=== PATIENT | female | born 1940 | race African-American/Black ===

== ENCOUNTER 2018-10-08 08:55 | Inpatient (IN) | payer MEDICARE, MEDICAID ==
[~2018-10-08] VITALS: Ht 167.6 cm; Wt 111.1 kg
[2018-10-08] MEDS: METHYLPREDNISOLONE SOD SUCC 40 MG/ML VIAL IV SCH (05:00)
[2018-10-08] MEDS ORDERED: SODIUM CHLORIDE 0.9% 1000ML BAG (SEPSIS BOLUS) IV ONE (09:30)
[2018-10-08] MEDS ORDERED: ALBUTEROL (0.083%) 2.5MG/3ML NEB HHN ONE ×2 (09:45→11:45)
[2018-10-08 10:07] LABS: CHLORIDE 102 mEq/L (98-107)
[2018-10-08 10:10] LABS: PROTHROMBIN TIME 10.3 sec (9.1-11.1)
[2018-10-08 10:24] LABS: HEMATOCRIT. 39.4 % (36.0-48.0); MEAN CORPUSCULAR HEMOGLOBIN 26.2 pg (28.0-32.0); MEAN CORPUSCULAR VOLUME 79.2 fL (81.0-99.0); PLATELET 197 x1000/uL (130-400); RED BLOOD CELL COUNT 4.98 mill/uL (4.2-5.4); RED CELL DISTRIBUTION WIDTH 15.8 % (11.6-14.6)
[2018-10-08 11:16] LABS: CLARITY URINE CLEAR (CLEAR); COLOR URINE YELLOW (YELLOW); KETONES URINE TRACE (NEGATIVE); LEUKOCYTE ESTERASE URINE TRACE (NEGATIVE); NITRITE URINE NEGATIVE (NEGATIVE); OCCULT BLOOD URINE TRACE (NEGATIVE); PROTEIN URINE 1+ (NEGATIVE); SPECIFIC GRAVITY URINE 1.013 (1.005-1.030); UROBILINOGEN URINE 0.2 E.U./dL (0.2-1.0)
[2018-10-08] MEDS ORDERED: METHYLPREDNISOLONE SOD SUCC 125 MG/2 ML VIAL IV ONE (11:45)
[2018-10-08] MEDS ORDERED: NITROFURANTOIN 100MG M/M CAPSULE PO ONE (12:15)
[2018-10-08 12:55] LABS: PLATELET ESTIMATE NORMAL
[2018-10-08] MEDS ORDERED: AMLODIPINE 10MG TABLET PO NR (14:00)
[2018-10-08] MEDS ORDERED: CLONIDINE 0.2MG TABLET PO PRN (21:00)
[2018-10-08] MEDS ORDERED: IPRATROPIUM/ALBUTEROL 0.5-3(2.5)MG/3ML NEB HHN PRN (21:00)
[2018-10-09 08:00] VITALS: BP 129/76
[2018-10-09] MEDS ORDERED: FLUT1DIS6 INH (10:37)
[2018-10-09] MEDS ORDERED: FEBU40TA MT (10:37)
[2018-10-09] MEDS ORDERED: IBUP-2030 MT (10:37)
[2018-10-09] MEDS ORDERED: ALBU2.5V13 NEB (10:37)
[2018-10-09] MEDS ORDERED: ATOR20TA65 MT (10:37)
[2018-10-09] MEDS ORDERED: GABA-529 MT (10:37)
[2018-10-09] MEDS ORDERED: FURO80TA3 MT (10:37)
[2018-10-09] MEDS ORDERED: OMEP20CA10 MT (10:37)
[2018-10-09] MEDS ORDERED: CHOL20004 MT (10:37)
[2018-10-09] MEDS ORDERED: IPRA4AER INH (10:37)
[2018-10-09] MEDS ORDERED: PRED5DRO EACHEYE (10:37)
[2018-10-09] MEDS ORDERED: AMLO10TA80 MT (10:37)
[2018-10-09] MEDS: LEVOFLOXACIN 500MG PREMIX 100 ML IV SCH (11:30)
[2018-10-09] MEDS: ENOXAPARIN 40MG/0.4ML SYR SUBCUT SCH (11:36)
[2018-10-09 12:00] VITALS: BP 124/49
[2018-10-09] MEDS: METHYLPREDNISOLONE SOD SUCC 40 MG/ML VIAL IV SCH ×2 (13:05→20:31)
[2018-10-09] MEDS ORDERED: PROMETHAZINE/DEXTROMETHORPHAN 6.25-15MG/5ML BOTTLE 120ML PO PRN (14:00)
[2018-10-09 16:00] VITALS: BP 119/64
[2018-10-09 17:19] VITALS: BP 119/64
[2018-10-09 17:31] VITALS: BP 129/76
[2018-10-09] MEDS ORDERED: HYDROCODONE/ACETAMINOPHEN 5/325MG TABLET PO PRN (19:00)
[2018-10-09 20:00] VITALS: BP 111/57
[2018-10-09] MEDS: FUROSEMIDE 40MG TABLET PO SCH (20:31)
[2018-10-09] MEDS ORDERED: ATORVASTATIN CALCIUM 20MG TABLET PO SCH (21:00)
[2018-10-10] VITALS: BP 121/64
[2018-10-10 04:00] VITALS: BP 117/55
[2018-10-10] MEDS: METHYLPREDNISOLONE SOD SUCC 40 MG/ML VIAL IV SCH ×3 (06:31→14:03)
[2018-10-10 08:00] VITALS: BP 151/75
[2018-10-10] MEDS ORDERED: AMLODIPINE 10MG TABLET PO SCH (09:00)
[2018-10-10] MEDS: ENOXAPARIN 40MG/0.4ML SYR SUBCUT SCH (09:44)
[2018-10-10] MEDS: FUROSEMIDE 40MG TABLET PO SCH (09:44)
[2018-10-10 12:00] VITALS: BP 122/64
[2018-10-10] MEDS: LEVOFLOXACIN 500MG PREMIX 100 ML IV SCH ×2 (14:04→15:38)
[2018-10-10 16:00] VITALS: BP 108/68
[2018-10-10 16:36] VITALS: BP 128/78
[2018-10-11 08:00] VITALS: BP 141/63
== END 2018-10-10 18:27 | disposition home or self-care (01) | DRG 189 ==
LOC: ER 09:03 → 7WST 11:43 → EDBEDREQ 11:43 → EDBEDREQSVC 11:43 → EDBEDREQTM 11:43 → EDBEDREQ 12:12 → SUPCPDRO 15:16 → ENRESERV 10-09 07:17
PROVIDERS: ADMIT Internal Medicine; ATTEND Internal Medicine
DX: J96.01 Acute respiratory failure with hypoxia (principal); J44.1 Chronic obstructive pulmonary disease with (acute) exacerbation; E66.01 Morbid (severe) obesity due to excess calories; I16.0 Hypertensive urgency; I11.9 Hypertensive heart disease without heart failure; I49.1 Atrial premature depolarization; M10.9 Gout, unspecified; Z68.39 Body mass index [BMI] 39.0-39.9, adult; I51.7 Cardiomegaly
CPT/HCPCS: 36415; 71045; 82962; 83605; 84484; 93005; 94640; 96361; 96374; 97162; 99285; J1650; J1956; J2920; J2930; J7030; J7050; J7611; J7620

== ENCOUNTER 2019-08-06 10:35 | Inpatient (IN) | payer MEDICARE, MEDICAID ==
[~2019-08-06] VITALS: Ht 171.4 cm; Wt 111.6 kg
[~2019-08-06 10:35] MED LIST: ALBU2.5V13 NEB; AMLO10TA80 MT; ATOR20TA65 MT; CHOL20004 MT; FEBU40TA MT; FLUT1DIS6 INH; FURO80TA3 MT; GABA-529 MT; IBUP-2030 MT; IPRA4AER INH; OMEP20CA14 MT; PRED5DRO EACHEYE
[2019-08-06] MEDS ORDERED: IPRATROPIUM BROMIDE (0.02%) 0.5MG/2.5ML NEB HHN STA (11:55)
[2019-08-06] MEDS ORDERED: METHYLPREDNISOLONE SOD SUCC 125 MG/2 ML VIAL IV STA (11:55)
[2019-08-06] MEDS ORDERED: ALBUTEROL (0.083%) 2.5MG/3ML NEB HHN STA (11:55)
[2019-08-06 13:09] LABS: EOSINOPHILS % 4.4 % (0.0-5.0); HEMATOCRIT. 34.4 % (36.0-48.0); HEMOGLOBIN. 11.3 g/dL (12.0-16.0); LYMPHOCYTES % 26.6 % (20.0-50.0); MEAN CORPUSCULAR HEMOGLOBIN 26.7 pg (28.0-32.0); MEAN CORPUSCULAR VOLUME 81.6 fL (81.0-99.0); MEAN PLATELET VOLUME 10.1 fl (7.4-10.4); MONOCYTES % 9.2 % (2.0-8.0); NEUTROPHILS % 58.8 % (40.0-76.0); PLATELET 174 x1000/uL (130-400); RED BLOOD CELL COUNT 4.21 mill/uL (4.2-5.4); RED CELL DISTRIBUTION WIDTH 15.2 % (11.6-14.6)
[2019-08-06 13:17] LABS: CHLORIDE 108 mEq/L (98-107)
[2019-08-06] MEDS ORDERED: FLUT1BLS IH (22:19)
[2019-08-06] MEDS ORDERED: CYCL30DR EACHEYE (22:19)
[2019-08-06 22:20] VITALS: BP 123/73
[2019-08-07] VITALS: BP 129/75
[2019-08-07] MEDS ORDERED: HYDROCODONE/ACETAMINOPHEN 5/325MG TABLET PO PRN (00:15)
[2019-08-07] MEDS ORDERED: ONDANSETRON HCL 4MG/2ML INJ IV PRN (00:15)
[2019-08-07] MEDS ORDERED: DILTIAZEM HCL 5MG/ML 25ML VIAL IV NR (01:00)
[2019-08-07] MEDS: ENOXAPARIN 120MG/0.8ML SYR SUBCUT SCH ×2 (01:44→13:51)
[2019-08-07] MEDS: METHYLPREDNISOLONE SOD SUCC 40 MG/ML VIAL IV SCH ×3 (01:44→18:34)
[2019-08-07 04:00] VITALS: BP 147/81
[2019-08-07] MEDS: OMEPRAZOLE 20MG CAPSULE EXTENDED RELEASE PO SCH (05:57)
[2019-08-07 07:56] LABS: BASOPHILS % 0.5 % (0.0-2.0); HEMATOCRIT. 37.3 % (36.0-48.0); HEMOGLOBIN. 12.1 g/dL (12.0-16.0); LYMPHOCYTES % 13.7 % (20.0-50.0); MEAN CORPUSCULAR HEMOGLOBIN 26.8 pg (28.0-32.0); MEAN CORPUSCULAR VOLUME 82.4 fL (81.0-99.0); MEAN PLATELET VOLUME 10.6 fl (7.4-10.4); MONOCYTES % 1.6 % (2.0-8.0); NEUTROPHILS % 84.2 % (40.0-76.0); PLATELET 188 x1000/uL (130-400); RED BLOOD CELL COUNT 4.52 mill/uL (4.2-5.4); RED CELL DISTRIBUTION WIDTH 15.5 % (11.6-14.6)
[2019-08-07 08:41] LABS: CHLORIDE 110 mEq/L (98-107)
[2019-08-07 08:50] LABS: CREATINE KINASE 89 IU/L (26-192)
[2019-08-07 08:51] LABS: CREATINE KINASE MB FRACTION 2.8 ng/mL (0.5-3.6)
[2019-08-07] MEDS: IPRATROPIUM BROMIDE (0.02%) 0.5MG/2.5ML NEB HHN SCH ×4 (08:51→20:55)
[2019-08-07] MEDS ORDERED: OSELTAMIVIR 75MG CAPSULE PO SCH (09:00)
[2019-08-07] MEDS ORDERED: AMLODIPINE 10MG TABLET PO SCH (09:00)
[2019-08-07] MEDS ORDERED: FUROSEMIDE 40MG TABLET PO SCH (09:00)
[2019-08-07] MEDS: GABAPENTIN 100MG CAPSULE PO SCH (09:07)
[2019-08-07] MEDS ORDERED: DILTIAZEM HCL 5MG/ML 5ML VIAL IV PRN (11:15)
[2019-08-07] MEDS: FUROSEMIDE 40MG TABLET PO SCH (11:30)
[2019-08-07 12:00] VITALS: BP 120/72
[2019-08-07] MEDS: DILTIAZEM HCL 60MG TABLET PO SCH ×2 (13:51→22:25)
[2019-08-07 16:00] VITALS: BP 127/69
[2019-08-07 20:00] VITALS: BP 127/70
[2019-08-07] MEDS: GUAIFENESIN/CODEINE 100-10MG/5ML UDC PO PRN (22:24)
[2019-08-07] MEDS: ATORVASTATIN CALCIUM 20MG TABLET PO SCH (22:25)
[2019-08-08] VITALS: BP 122/69
[2019-08-08] MEDS: METHYLPREDNISOLONE SOD SUCC 40 MG/ML VIAL IV SCH ×3 (01:16→17:52)
[2019-08-08] MEDS: ENOXAPARIN 120MG/0.8ML SYR SUBCUT SCH ×2 (01:17→11:55)
[2019-08-08] MEDS: IPRATROPIUM BROMIDE (0.02%) 0.5MG/2.5ML NEB HHN SCH ×6 (01:35→20:14)
[2019-08-08 04:00] VITALS: BP 140/80
[2019-08-08] MEDS: DILTIAZEM HCL 60MG TABLET PO SCH ×3 (06:10→21:21)
[2019-08-08] MEDS: OMEPRAZOLE 20MG CAPSULE EXTENDED RELEASE PO SCH (06:10)
[2019-08-08 07:20] LABS: BASOPHILS % 0.3 % (0.0-2.0); HEMATOCRIT. 34.8 % (36.0-48.0); HEMOGLOBIN. 11.5 g/dL (12.0-16.0); LYMPHOCYTES % 10.2 % (20.0-50.0); MEAN CORPUSCULAR VOLUME 81.7 fL (81.0-99.0); MEAN PLATELET VOLUME 10.7 fl (7.4-10.4); MONOCYTES % 3.9 % (2.0-8.0); NEUTROPHILS % 85.6 % (40.0-76.0); PLATELET 202 x1000/uL (130-400); RED BLOOD CELL COUNT 4.25 mill/uL (4.2-5.4); RED CELL DISTRIBUTION WIDTH 15.1 % (11.6-14.6)
[2019-08-08 08:22] VITALS: BP 124/76
[2019-08-08] MEDS: GABAPENTIN 100MG CAPSULE PO SCH (09:47)
[2019-08-08] MEDS: FUROSEMIDE 40MG TABLET PO SCH (09:47)
[2019-08-08] MEDS: GUAIFENESIN/CODEINE 100-10MG/5ML UDC PO PRN ×2 (10:02→21:31)
[2019-08-08 12:00] VITALS: BP 129/72
[2019-08-08 16:00] VITALS: BP 126/60
[2019-08-08 17:59] LABS: PROTHROMBIN TIME 10.5 sec (9.6-11.0)
[2019-08-08 20:00] VITALS: BP 125/72
[2019-08-08] MEDS: ATORVASTATIN CALCIUM 20MG TABLET PO SCH (21:21)
[2019-08-09] VITALS: BP 141/69
[2019-08-09] MEDS: IPRATROPIUM BROMIDE (0.02%) 0.5MG/2.5ML NEB HHN SCH ×6 (00:14→20:05)
[2019-08-09] MEDS: METHYLPREDNISOLONE SOD SUCC 40 MG/ML VIAL IV SCH ×3 (00:53→16:56)
[2019-08-09] MEDS: ENOXAPARIN 120MG/0.8ML SYR SUBCUT SCH ×2 (00:54→12:47)
[2019-08-09 04:00] VITALS: BP 141/78
[2019-08-09] MEDS: DILTIAZEM HCL 60MG TABLET PO SCH ×2 (05:48→12:47)
[2019-08-09 06:55] LABS: BASOPHILS % 0.3 % (0.0-2.0); HEMATOCRIT. 36.5 % (36.0-48.0); HEMOGLOBIN. 11.9 g/dL (12.0-16.0); LYMPHOCYTES % 8.3 % (20.0-50.0); MEAN CORPUSCULAR HEMOGLOBIN 26.6 pg (28.0-32.0); MEAN CORPUSCULAR VOLUME 81.8 fL (81.0-99.0); MEAN PLATELET VOLUME 10.5 fl (7.4-10.4); MONOCYTES % 3.7 % (2.0-8.0); NEUTROPHILS % 87.7 % (40.0-76.0); PLATELET 218 x1000/uL (130-400); RED BLOOD CELL COUNT 4.47 mill/uL (4.2-5.4); RED CELL DISTRIBUTION WIDTH 15.2 % (11.6-14.6)
[2019-08-09 08:00] VITALS: BP 130/77
[2019-08-09] MEDS: GABAPENTIN 100MG CAPSULE PO SCH (09:34)
[2019-08-09] MEDS: FAMOTIDINE 40MG TABLET PO SCH ×2 (09:34→20:44)
[2019-08-09 12:00] VITALS: BP 131/73
[2019-08-09] MEDS: GUAIFENESIN/CODEINE 100-10MG/5ML UDC PO PRN (12:47)
[2019-08-09] MEDS: DILTIAZEM HCL 90MG TABLET PO SCH ×2 (14:00→20:44)
[2019-08-09 16:00] VITALS: BP 138/75
[2019-08-09 20:00] VITALS: BP 143/80
[2019-08-09] MEDS: ATORVASTATIN CALCIUM 20MG TABLET PO SCH (20:44)
[2019-08-10] VITALS: BP 150/87
[2019-08-10] MEDS: ALBUTEROL (0.083%) 2.5MG/3ML NEB HHN SCH ×3 (01:23→20:40)
[2019-08-10] MEDS: ENOXAPARIN 120MG/0.8ML SYR SUBCUT SCH ×2 (03:02→14:27)
[2019-08-10] MEDS: METHYLPREDNISOLONE SOD SUCC 40 MG/ML VIAL IV SCH ×3 (03:02→17:57)
[2019-08-10 04:00] VITALS: BP 139/78
[2019-08-10] MEDS: DILTIAZEM HCL 90MG TABLET PO SCH ×2 (06:17→18:09)
[2019-08-10 07:41] LABS: HEMATOCRIT. 36.6 % (36.0-48.0); HEMOGLOBIN. 12.1 g/dL (12.0-16.0); MEAN CORPUSCULAR HEMOGLOBIN 27.4 pg (28.0-32.0); MEAN CORPUSCULAR VOLUME 82.6 fL (81.0-99.0); MEAN PLATELET VOLUME 10.1 fl (7.4-10.4); PLATELET 201 x1000/uL (130-400); RED BLOOD CELL COUNT 4.43 mill/uL (4.2-5.4); RED CELL DISTRIBUTION WIDTH 15.4 % (11.6-14.6)
[2019-08-10 08:00] VITALS: BP 130/78
[2019-08-10] MEDS ORDERED: FLUTICASONE/VILANTEROL 200-25 BLST.W.DEV ORI SCH (09:00)
[2019-08-10] MEDS: BUDESONIDE 0.5MG/2ML NEB HHN SCH ×2 (09:00→20:40)
[2019-08-10] MEDS: GABAPENTIN 100MG CAPSULE PO SCH (09:38)
[2019-08-10] MEDS: FAMOTIDINE 40MG TABLET PO SCH ×2 (09:38→21:03)
[2019-08-10 10:01] LABS: CHLORIDE 108 mEq/L (98-107)
[2019-08-10 11:15] LABS: PLATELET ESTIMATE NORMAL
[2019-08-10] MEDS ORDERED: SODIUM BICARBONATE 4% (2.4MEQ) 5ML VIAL IV ONE (12:33)
[2019-08-10] MEDS ORDERED: LIDOCAINE HCL 1% 20ML VIAL (Pyxis) INJ ONE (12:33)
[2019-08-10] MEDS ORDERED: IOHEXOL-350 100 ML BOTTLE ONE (14:12)
[2019-08-10 16:00] VITALS: BP 158/79
[2019-08-10 20:00] VITALS: BP 127/75
[2019-08-10] MEDS: ATORVASTATIN CALCIUM 20MG TABLET PO SCH (21:03)
[2019-08-11] VITALS (9 sets, daily range): BP systolic 109–150; BP diastolic 50–84
[2019-08-11] MEDS: DILTIAZEM HCL 90MG TABLET PO SCH ×4 (01:06→17:51)
[2019-08-11] MEDS: METHYLPREDNISOLONE SOD SUCC 40 MG/ML VIAL IV SCH ×3 (01:08→17:51)
[2019-08-11] MEDS ORDERED: ENOXAPARIN 120MG/0.8ML SYR SUBCUT SCH (02:00)
[2019-08-11] MEDS: ALBUTEROL (0.083%) 2.5MG/3ML NEB HHN SCH ×4 (04:31→22:50)
[2019-08-11] MEDS: BUDESONIDE 0.5MG/2ML NEB HHN SCH ×2 (08:45→22:50)
[2019-08-11 08:54] LABS: HEMATOCRIT. 37.1 % (36.0-48.0); HEMOGLOBIN. 12.3 g/dL (12.0-16.0); MEAN CORPUSCULAR HEMOGLOBIN 27.4 pg (28.0-32.0); MEAN CORPUSCULAR VOLUME 82.8 fL (81.0-99.0); PLATELET 193 x1000/uL (130-400); RED BLOOD CELL COUNT 4.48 mill/uL (4.2-5.4); RED CELL DISTRIBUTION WIDTH 15.4 % (11.6-14.6)
[2019-08-11] MEDS ORDERED: MIDAZOLAM HCL 2 MG/2 ML VIAL ONE (08:55)
[2019-08-11] MEDS ORDERED: FENTANYL CITRATE/PF 50MCG/ML 2ML VIAL ONE (08:55)
[2019-08-11] MEDS ORDERED: SODIUM CHLORIDE 0.9% 10ML VIAL ONE ×3 (09:00→09:54)
[2019-08-11] MEDS: FAMOTIDINE 40MG TABLET PO SCH ×2 (09:00→21:54)
[2019-08-11] MEDS: GABAPENTIN 100MG CAPSULE PO SCH (09:00)
[2019-08-11] MEDS ORDERED: EPHEDRINE SULFATE 50MG/ML VIAL ONE (09:00)
[2019-08-11] MEDS ORDERED: LIDOCAINE HCL 1% 20ML VIAL (Pyxis) INJ ONE (09:25)
[2019-08-11] MEDS ORDERED: CEFAZOLIN SODIUM 1000MG/VIAL ONE (09:53)
[2019-08-11] MEDS ORDERED: HYDROCORTISONE SOD SUCCINATE 100 MG/2 ML VIAL ONE (09:57)
[2019-08-11] MEDS ORDERED: METOCLOPRAMIDE HCL 10MG/2ML VIAL ONE (09:59)
[2019-08-11] MEDS ORDERED: ONDANSETRON HCL 4MG/2ML INJ ONE (11:31)
[2019-08-11] MEDS ORDERED: GLYCOPYRROLATE 0.2 MG/ML 2ML VIAL ONE ×2 (11:35→11:47)
[2019-08-11] MEDS ORDERED: ATROPINE SULFATE 1MG/10ML SYR IV PRN (12:00)
[2019-08-11 13:15] LABS: PLATELET ESTIMATE NORMAL
[2019-08-11] MEDS ORDERED: HEPARIN SODIUM 1,000 UNIT/1ML VIAL IV ONE (17:06)
[2019-08-11] MEDS: ATORVASTATIN CALCIUM 20MG TABLET PO SCH (21:54)
[2019-08-12] VITALS (9 sets, daily range): BP systolic 101–131; BP diastolic 50–69
[2019-08-12] MEDS: METHYLPREDNISOLONE SOD SUCC 40 MG/ML VIAL IV SCH ×2 (01:07→10:28)
[2019-08-12] MEDS: ALBUTEROL (0.083%) 2.5MG/3ML NEB HHN SCH ×3 (03:56→13:45)
[2019-08-12 07:53] LABS: HEMOGLOBIN. 11.3 g/dL (12.0-16.0); MEAN CORPUSCULAR HEMOGLOBIN 26.7 pg (28.0-32.0); MEAN CORPUSCULAR VOLUME 82.7 fL (81.0-99.0); MEAN PLATELET VOLUME 9.9 fl (7.4-10.4); PLATELET 161 x1000/uL (130-400); RED BLOOD CELL COUNT 4.23 mill/uL (4.2-5.4); RED CELL DISTRIBUTION WIDTH 15.5 % (11.6-14.6)
[2019-08-12] MEDS: BUDESONIDE 0.5MG/2ML NEB HHN SCH (07:58)
[2019-08-12] MEDS: FAMOTIDINE 40MG TABLET PO SCH (08:22)
[2019-08-12] MEDS: GABAPENTIN 100MG CAPSULE PO SCH (08:22)
[2019-08-12 14:27] LABS: PLATELET ESTIMATE NORMAL
== END 2019-08-12 16:30 | disposition home or self-care (01) | DRG 273 ==
LOC: ER 10:42 → 5WST 15:50 → EDBEDREQTM 16:01 → EDBEDREQ 16:01 → ENRESERV 20:20 → 3WST 08-11 10:40
PROVIDERS: ADMIT Internal Medicine; ATTEND Internal Medicine
PROC: 02HV33Z Insertion of Infusion Device into Superior Vena Cava, Percutaneous Approach (ICD-10-PCS; principal; 2019-08-10)
PROC: B548ZZA Ultrasonography of Superior Vena Cava, Guidance (ICD-10-PCS; 2019-08-10)
PROC: B5181ZA Fluoroscopy of Superior Vena Cava using Low Osmolar Contrast, Guidance (ICD-10-PCS; 2019-08-10)
PROC: 02583ZZ Destruction of Conduction Mechanism, Percutaneous Approach (ICD-10-PCS; 2019-08-11)
PROC: 4A023FZ Measurement of Cardiac Rhythm, Percutaneous Approach (ICD-10-PCS; 2019-08-11)
PROC: 4A0234Z Measurement of Cardiac Electrical Activity, Percutaneous Approach (ICD-10-PCS; 2019-08-11)
PROC: 02K83ZZ Map Conduction Mechanism, Percutaneous Approach (ICD-10-PCS; 2019-08-11)
DX: I48.3 Typical atrial flutter (principal); J96.20 Acute and chronic respiratory failure, unspecified whether with hypoxia or hypercapnia; I50.23 Acute on chronic systolic (congestive) heart failure; J44.1 Chronic obstructive pulmonary disease with (acute) exacerbation; J11.1 Influenza due to unidentified influenza virus with other respiratory manifestations; I42.9 Cardiomyopathy, unspecified; E78.5 Hyperlipidemia, unspecified; G47.33 Obstructive sleep apnea (adult) (pediatric); I11.0 Hypertensive heart disease with heart failure; D64.9 Anemia, unspecified; E66.01 Morbid (severe) obesity due to excess calories; K21.9 Gastro-esophageal reflux disease without esophagitis; I45.9 Conduction disorder, unspecified; R26.9 Unspecified abnormalities of gait and mobility; M10.9 Gout, unspecified; R73.9 Hyperglycemia, unspecified; Z90.710 Acquired absence of both cervix and uterus; Z99.81 Dependence on supplemental oxygen; Z79.899 Other long term (current) drug therapy; Z68.38 Body mass index [BMI] 38.0-38.9, adult; Z88.8 Allergy status to other drugs, medicaments and biological substances; Z79.01 Long term (current) use of anticoagulants; Z82.49 Family history of ischemic heart disease and other diseases of the circulatory system; Z87.891 Personal history of nicotine dependence; Z98.49 Cataract extraction status, unspecified eye
CPT/HCPCS: 36415; 36573; 71045; 75572; 76937; 80048; 80053; 82550; 82553; 83735; 83880; 84443; 84484; 85025; 85379; 87804; 93005; 93306; 93613; 93621; 93653; 93662; 93970; 94640; 97116; 97162; 97166; 97530; 99285; C1725; C1731; C1732; C1759; C1893; J0690; J1644; J1650; J1720; J2250; J2405; J2765; J2920; J2930; J3010; J3490; J7040; J7626; Q9967

== ENCOUNTER 2020-03-28 12:19 | Inpatient (IN) | payer MEDICARE, MEDICAID ==
[~2020-03-28] VITALS: Ht 170.2 cm; Wt 104.5 kg
[~2020-03-28 12:19] MED LIST changes: +CYCL30DR EACHEYE; +FLUT1BLS IH
[2020-03-28] MEDS ORDERED: FAMOTIDINE 20MG/2ML VIAL IV STA (12:49)
[2020-03-28] MEDS ORDERED: PANTOPRAZOLE SODIUM 40 MG/VIAL IV STA (12:49)
[2020-03-28 13:11] LABS: BASOPHILS % 1.3 % (0.0-2.0); EOSINOPHILS % 3.6 % (0.0-5.0); HEMATOCRIT. 33.1 % (36.0-48.0); HEMOGLOBIN. 10.6 g/dL (12.0-16.0); LYMPHOCYTES % 19.9 % (20.0-50.0); MEAN CORPUSCULAR HEMOGLOBIN 26.6 pg (28.0-32.0); MEAN CORPUSCULAR VOLUME 82.9 fL (81.0-99.0); MEAN PLATELET VOLUME 10.4 fl (7.4-10.4); MONOCYTES % 8.6 % (2.0-8.0); NEUTROPHILS % 66.6 % (40.0-76.0); PLATELET 207 x1000/uL (130-400); RED BLOOD CELL COUNT 3.99 mill/uL (4.2-5.4); RED CELL DISTRIBUTION WIDTH 14.5 % (11.6-14.6)
[2020-03-28 13:21] LABS: CHLORIDE 111 mEq/L (98-107)
[2020-03-28 13:28] LABS: INR 1.1; PROTHROMBIN TIME 11.2 sec (9.6-11.0)
[2020-03-28 22:01] LABS: CLARITY URINE CLEAR (CLEAR); COLOR URINE OTHER (YELLOW); KETONES URINE NEGATIVE (NEGATIVE); LEUKOCYTE ESTERASE URINE NEGATIVE (NEGATIVE); NITRITE URINE NEGATIVE (NEGATIVE); OCCULT BLOOD URINE NEGATIVE (NEGATIVE); PH URINE 6.5 (4.5-8.0); PROTEIN URINE NEGATIVE (NEGATIVE); SPECIFIC GRAVITY URINE 1.012 (1.005-1.030); UROBILINOGEN URINE 0.2 E.U./dL (0.2-1.0)
[2020-03-29] VITALS (14 sets, daily range): BP systolic 133–188; BP diastolic 67–107
[2020-03-29] MEDS ORDERED: HYDROCODONE/ACETAMINOPHEN 5/325MG TABLET PO PRN (01:30)
[2020-03-29] MEDS ORDERED: ONDANSETRON HCL 4MG/2ML INJ IV PRN (01:30)
[2020-03-29 06:22] LABS: BASOPHILS % 1.6 % (0.0-2.0); HEMATOCRIT. 33.1 % (36.0-48.0); HEMOGLOBIN. 10.8 g/dL (12.0-16.0); MEAN CORPUSCULAR HEMOGLOBIN 27.1 pg (28.0-32.0); MEAN PLATELET VOLUME 10.9 fl (7.4-10.4); MONOCYTES % 11.7 % (2.0-8.0); NEUTROPHILS % 61.7 % (40.0-76.0); PLATELET 178 x1000/uL (130-400); RED BLOOD CELL COUNT 3.99 mill/uL (4.2-5.4); RED CELL DISTRIBUTION WIDTH 14.7 % (11.6-14.6)
[2020-03-29 06:30] LABS: CHLORIDE 112 mEq/L (98-107)
[2020-03-29] MEDS: AMLODIPINE 10MG TABLET PO SCH (09:36)
[2020-03-29] MEDS: ATORVASTATIN CALCIUM 20MG TABLET PO SCH (09:36)
[2020-03-29] MEDS: PANTOPRAZOLE SODIUM 40 MG/VIAL IV SCH (09:36)
[2020-03-29] MEDS: GABAPENTIN 100MG CAPSULE PO SCH ×3 (09:36→21:18)
[2020-03-29 11:38] LABS: BASOPHILS % 0.8 % (0.0-2.0); EOSINOPHILS % 3.7 % (0.0-5.0); HEMATOCRIT. 32.2 % (36.0-48.0); HEMOGLOBIN. 10.5 g/dL (12.0-16.0); LYMPHOCYTES % 17.7 % (20.0-50.0); MEAN CORPUSCULAR HEMOGLOBIN 26.9 pg (28.0-32.0); MEAN CORPUSCULAR VOLUME 82.4 fL (81.0-99.0); MEAN PLATELET VOLUME 10.3 fl (7.4-10.4); MONOCYTES % 9.9 % (2.0-8.0); NEUTROPHILS % 67.9 % (40.0-76.0); PLATELET 180 x1000/uL (130-400); RED BLOOD CELL COUNT 3.91 mill/uL (4.2-5.4); RED CELL DISTRIBUTION WIDTH 14.5 % (11.6-14.6)
[2020-03-29 11:54] LABS: CHLORIDE 111 mEq/L (98-107)
[2020-03-29 16:14] LABS: TOTAL IRON BINDING CAPACITY 237 ug/dL (250-450)
[2020-03-29] MEDS: FUROSEMIDE 40MG TABLET PO SCH ×2 (16:33→16:34)
[2020-03-29 16:49] LABS: FOLIC ACID (FOLATE) SERUM 12.3 ng/mL (>5.38)
[2020-03-29 18:46] LABS: HEMATOCRIT 34.5 % (36.0-48.0); HEMOGLOBIN 11.3 g/dL (12.0-16.0)
[2020-03-29 19:01] LABS: T4 FREE 1.36 ng/dL (0.76-1.46)
[2020-03-30] VITALS (12 sets, daily range): BP systolic 102–176; BP diastolic 52–75
[2020-03-30] MEDS: GABAPENTIN 100MG CAPSULE PO SCH ×2 (06:21→14:52)
[2020-03-30] MEDS: FUROSEMIDE 40MG TABLET PO SCH ×2 (06:21→17:15)
[2020-03-30 08:43] LABS: BASOPHILS % 1.3 % (0.0-2.0); EOSINOPHILS % 4.7 % (0.0-5.0); HEMATOCRIT. 35.6 % (36.0-48.0); HEMOGLOBIN. 11.5 g/dL (12.0-16.0); LYMPHOCYTES % 19.9 % (20.0-50.0); MEAN CORPUSCULAR HEMOGLOBIN 26.9 pg (28.0-32.0); MEAN CORPUSCULAR VOLUME 83.1 fL (81.0-99.0); MEAN PLATELET VOLUME 10.4 fl (7.4-10.4); MONOCYTES % 7.9 % (2.0-8.0); NEUTROPHILS % 66.2 % (40.0-76.0); PLATELET 214 x1000/uL (130-400); RED BLOOD CELL COUNT 4.28 mill/uL (4.2-5.4); RED CELL DISTRIBUTION WIDTH 14.8 % (11.6-14.6)
[2020-03-30] MEDS: ATORVASTATIN CALCIUM 20MG TABLET PO SCH (08:48)
[2020-03-30] MEDS: PANTOPRAZOLE SODIUM 40 MG/VIAL IV SCH (08:48)
[2020-03-30] MEDS: AMLODIPINE 10MG TABLET PO SCH (08:48)
[2020-03-30 09:01] LABS: CHLORIDE 108 mEq/L (98-107)
== END 2020-03-30 20:04 | disposition home or self-care (01) | DRG 378 ==
LOC: ER 12:37 → EDBEDREQ 13:57 → EDBEDREQTM 13:57 → MICUSO 15:13 → EDBEDREQ 15:22 → EDBEDREQTM 15:22 → 3WST 03-29 00:11
PROVIDERS: ADMIT Internal Medicine; ATTEND Internal Medicine
DX: K62.5 Hemorrhage of anus and rectum (principal); I42.9 Cardiomyopathy, unspecified; I48.92 Unspecified atrial flutter; D63.8 Anemia in other chronic diseases classified elsewhere; E66.9 Obesity, unspecified; E78.5 Hyperlipidemia, unspecified; F17.200 Nicotine dependence, unspecified, uncomplicated; G47.33 Obstructive sleep apnea (adult) (pediatric); G62.9 Polyneuropathy, unspecified; I11.0 Hypertensive heart disease with heart failure; I48.91 Unspecified atrial fibrillation; I49.3 Ventricular premature depolarization; I50.9 Heart failure, unspecified; J44.9 Chronic obstructive pulmonary disease, unspecified; K21.9 Gastro-esophageal reflux disease without esophagitis; K59.00 Constipation, unspecified; M10.9 Gout, unspecified; M16.0 Bilateral primary osteoarthritis of hip; M17.12 Unilateral primary osteoarthritis, left knee; Z90.710 Acquired absence of both cervix and uterus; Z88.8 Allergy status to other drugs, medicaments and biological substances; Z79.899 Other long term (current) drug therapy; Z68.36 Body mass index [BMI] 36.0-36.9, adult
CPT/HCPCS: 36415; 70551; 71045; 72141; 72148; 73522; 73560; 80048; 80053; 81003; 82550; 82607; 82728; 82746; 83036; 83540; 83550; 83735; 83880; 84439; 84443; 84481; 84484; 85014; 85018; 85025; 86850; 86900; 93005; 93970; 94660; 97162; 99285; C9113; J3490

== ENCOUNTER → 2020-09-11 | Outpatient (CLI) | payer MEDICARE, MEDICAID | END | disposition home or self-care (01) | LOC: MRI 10:04 | PROVIDERS: ATTEND Neurological Surgery | DX: M47.816 Spondylosis without myelopathy or radiculopathy, lumbar region (principal); M48.061 Spinal stenosis, lumbar region without neurogenic claudication; M51.46 Schmorl's nodes, lumbar region | CPT/HCPCS: 72148 ==

== ENCOUNTER 2020-11-12 11:01 | Inpatient (IN) | payer MEDICARE, MEDICAID ==
[~2020-11-12] VITALS: Ht 154.9 cm; Wt 97.5 kg
[2020-11-12 13:09] LABS: BASOPHILS % 1.3 % (0.0-2.0); EOSINOPHILS % 4.4 % (0.0-5.0); HEMATOCRIT. 33.8 % (36.0-48.0); HEMOGLOBIN. 10.9 g/dL (12.0-16.0); LYMPHOCYTES % 24.1 % (20.0-50.0); MEAN CORPUSCULAR HEMOGLOBIN 25.7 pg (28.0-32.0); MEAN CORPUSCULAR VOLUME 79.5 fL (81.0-99.0); MONOCYTES % 11.3 % (2.0-8.0); NEUTROPHILS % 58.9 % (40.0-76.0); PLATELET 188 x1000/uL (130-400); RED BLOOD CELL COUNT 4.25 mill/uL (4.2-5.4); RED CELL DISTRIBUTION WIDTH 16.3 % (11.6-14.6)
[2020-11-12 13:16] LABS: CHLORIDE 110 mEq/L (98-107)
[2020-11-12 13:20] LABS: ETHANOL BLOOD < 10 mg/dL
[2020-11-12] MEDS ORDERED: AMLODIPINE 5MG TABLET PO ONE (14:15)
[2020-11-12 15:23] LABS: CLARITY URINE CLEAR (CLEAR); COLOR URINE YELLOW (YELLOW); KETONES URINE NEGATIVE (NEGATIVE); LEUKOCYTE ESTERASE URINE 2+ (NEGATIVE); NITRITE URINE NEGATIVE (NEGATIVE); OCCULT BLOOD URINE NEGATIVE (NEGATIVE); PH URINE 6.5 (4.5-8.0); PROTEIN URINE TRACE (NEGATIVE); SPECIFIC GRAVITY URINE 1.012 (1.005-1.030); UROBILINOGEN URINE 0.2 E.U./dL (0.2-1.0)
[2020-11-12 15:34] LABS: *AMPHETAMINES SCREEN URINE NEGATIVE (NEGATIVE); *BARBITURATES SCREEN URINE NEGATIVE (NEGATIVE); *BENZODIAZEPINES SCREEN URINE NEGATIVE (NEGATIVE); *COCAINE SCREEN URINE NEGATIVE (NEGATIVE); METHADONE URINE SCREEN NEGATIVE (NEGATIVE); OPIATES URINE SCREEN NEGATIVE (NEGATIVE)
[2020-11-12 15:35] LABS: CANNABINOID URINE SCREEN NEGATIVE (NEGATIVE); PHENCYCLIDINE URINE SCREEN NEGATIVE (NEGATIVE)
[2020-11-12] MEDS ORDERED: CEFEPIME 2,000 MG in DEXT 5% WATER 100 ML IV SCH (16:45)
[2020-11-12] MEDS ORDERED: CEFEPIME 1,000 MG in DEXTROSE 5% WATER 50 ML IV SCH (17:00)
[2020-11-12] MEDS ORDERED: ONDANSETRON HCL 4MG/2ML INJ IV PRN (22:30)
[2020-11-12] MEDS ORDERED: ACETAMINOPHEN 325MG TABLET PO PRN (22:30)
[2020-11-12] MEDS ORDERED: MORPHINE SULFATE 2 MG/ML CPJ (NOT FOR IM USE) IV PRN (22:30)
[2020-11-12] MEDS ORDERED: CLONIDINE 0.1MG TABLET PO PRN (22:30)
[2020-11-12] MEDS ORDERED: HYDROCODONE/ACETAMINOPHEN 5/325MG TABLET PO PRN (22:30)
[2020-11-12] MEDS ORDERED: LIDOCAINE HCL 4% CREAM 76GM TUBE TP SCH (23:00)
[2020-11-13 00:09] VITALS: BP 149/72
[2020-11-13] MEDS: GABAPENTIN 100MG CAPSULE PO SCH ×4 (01:28→20:27)
[2020-11-13] MEDS: CEFEPIME 1,000 MG in DEXTROSE 5% WATER 50 ML IV SCH ×2 (05:47→20:27)
[2020-11-13] MEDS: OMEPRAZOLE 20MG CAPSULE EXTENDED RELEASE PO SCH (06:47)
[2020-11-13 07:04] LABS: BASOPHILS % 1.1 % (0.0-2.0); HEMATOCRIT. 35.6 % (36.0-48.0); HEMOGLOBIN. 11.7 g/dL (12.0-16.0); LYMPHOCYTES % 20.7 % (20.0-50.0); MEAN CORPUSCULAR HEMOGLOBIN 26.4 pg (28.0-32.0); MEAN CORPUSCULAR VOLUME 80.6 fL (81.0-99.0); MEAN PLATELET VOLUME 10.8 fl (7.4-10.4); MONOCYTES % 13.4 % (2.0-8.0); NEUTROPHILS % 59.8 % (40.0-76.0); PLATELET 191 x1000/uL (130-400); RED BLOOD CELL COUNT 4.42 mill/uL (4.2-5.4); RED CELL DISTRIBUTION WIDTH 15.8 % (11.6-14.6)
[2020-11-13 07:05] LABS: CHLORIDE 107 mEq/L (98-107)
[2020-11-13 07:20] LABS: CREATINE KINASE 73 IU/L (26-192)
[2020-11-13 07:25] LABS: CREATINE KINASE MB FRACTION 1.7 ng/mL (0.5-3.6)
[2020-11-13 08:00] VITALS: BP 190/86
[2020-11-13] MEDS: ATORVASTATIN CALCIUM 20MG TABLET PO SCH (08:28)
[2020-11-13] MEDS: LIDOCAINE HCL 4% CREAM 76GM TUBE TP SCH ×2 (08:28→18:02)
[2020-11-13] MEDS: ENOXAPARIN 30MG/0.3ML SYR SUBCUT SCH (08:29)
[2020-11-13] MEDS ORDERED: AMLODIPINE 10MG TABLET PO SCH (09:00)
[2020-11-13 09:30] VITALS: BP 118/51
[2020-11-13] MEDS: LOSARTAN POTASSIUM 25 MG TABLET PO SCH (09:30)
[2020-11-13] MEDS ORDERED: INFLUENZA VACCINE 05/PF 0.5 ML VIAL IM ONE (10:00)
[2020-11-13 12:00] VITALS: BP 145/74
[2020-11-13 16:00] VITALS: BP 107/74
[2020-11-13] MEDS: AMLODIPINE 10MG TABLET PO SCH (17:00)
[2020-11-13 18:35] LABS: CREATINE KINASE 61 IU/L (26-192)
[2020-11-13 18:36] LABS: CREATINE KINASE MB FRACTION 1.4 ng/mL (0.5-3.6)
[2020-11-13 20:00] VITALS: BP 130/70
[2020-11-14] VITALS (8 sets, daily range): BP systolic 93–181; BP diastolic 50–91
[2020-11-14] MEDS: OMEPRAZOLE 20MG CAPSULE EXTENDED RELEASE PO SCH (06:07)
[2020-11-14] MEDS: GABAPENTIN 100MG CAPSULE PO SCH ×3 (06:07→21:09)
[2020-11-14 06:53] LABS: BASOPHILS % 0.9 % (0.0-2.0); EOSINOPHILS % 4.5 % (0.0-5.0); HEMATOCRIT. 34.2 % (36.0-48.0); HEMOGLOBIN. 11.1 g/dL (12.0-16.0); LYMPHOCYTES % 25.8 % (20.0-50.0); MEAN CORPUSCULAR HEMOGLOBIN 25.8 pg (28.0-32.0); MEAN CORPUSCULAR VOLUME 79.3 fL (81.0-99.0); MEAN PLATELET VOLUME 10.7 fl (7.4-10.4); MONOCYTES % 11.7 % (2.0-8.0); NEUTROPHILS % 57.1 % (40.0-76.0); PLATELET 194 x1000/uL (130-400); RED BLOOD CELL COUNT 4.31 mill/uL (4.2-5.4); RED CELL DISTRIBUTION WIDTH 15.5 % (11.6-14.6)
[2020-11-14 06:55] LABS: CHLORIDE 108 mEq/L (98-107)
[2020-11-14 07:05] LABS: TOTAL IRON BINDING CAPACITY 295 ug/dL (250-450)
[2020-11-14] MEDS: ATORVASTATIN CALCIUM 20MG TABLET PO SCH (11:06)
[2020-11-14] MEDS: LOSARTAN POTASSIUM 25 MG TABLET PO SCH (11:07)
[2020-11-14] MEDS: AMLODIPINE 10MG TABLET PO SCH ×2 (11:07→17:00)
[2020-11-14] MEDS: LIDOCAINE HCL 4% CREAM 76GM TUBE TP SCH ×2 (11:08→17:00)
[2020-11-14] MEDS: ENOXAPARIN 30MG/0.3ML SYR SUBCUT SCH (11:08)
[2020-11-14] MEDS: CEFEPIME 1,000 MG in DEXTROSE 5% WATER 50 ML IV SCH ×2 (11:24→21:09)
[2020-11-14] MEDS ORDERED: CLONIDINE 0.1MG TABLET PO PRN (16:30)
[2020-11-15] VITALS (7 sets, daily range): BP systolic 115–140; BP diastolic 60–77
[2020-11-15] MEDS: GABAPENTIN 100MG CAPSULE PO SCH ×3 (05:29→22:52)
[2020-11-15 07:32] LABS: BASOPHILS % 0.9 % (0.0-2.0); EOSINOPHILS % 5.3 % (0.0-5.0); HEMATOCRIT. 33.1 % (36.0-48.0); HEMOGLOBIN. 10.9 g/dL (12.0-16.0); LYMPHOCYTES % 24.8 % (20.0-50.0); MEAN CORPUSCULAR HEMOGLOBIN 26.1 pg (28.0-32.0); MEAN CORPUSCULAR VOLUME 79.3 fL (81.0-99.0); MEAN PLATELET VOLUME 10.8 fl (7.4-10.4); MONOCYTES % 12.1 % (2.0-8.0); NEUTROPHILS % 56.9 % (40.0-76.0); PLATELET 178 x1000/uL (130-400); RED BLOOD CELL COUNT 4.18 mill/uL (4.2-5.4); RED CELL DISTRIBUTION WIDTH 15.6 % (11.6-14.6)
[2020-11-15 07:40] LABS: T4 FREE 1.57 ng/dL (0.76-1.46)
[2020-11-15 08:00] LABS: VITAMIN B12 SERUM 416 pg/mL (211-911)
[2020-11-15] MEDS: CEFEPIME 1,000 MG in DEXTROSE 5% WATER 50 ML IV SCH ×2 (10:20→22:52)
[2020-11-15] MEDS: LOSARTAN POTASSIUM 25 MG TABLET PO SCH (10:20)
[2020-11-15] MEDS: FAMOTIDINE 20MG TABLET PO SCH (10:21)
[2020-11-15] MEDS: AMLODIPINE 10MG TABLET PO SCH ×2 (10:21→17:12)
[2020-11-15] MEDS: ATORVASTATIN CALCIUM 20MG TABLET PO SCH (10:21)
[2020-11-15] MEDS: LIDOCAINE HCL 4% CREAM 76GM TUBE TP SCH ×2 (10:22→17:13)
[2020-11-15] MEDS: ENOXAPARIN 30MG/0.3ML SYR SUBCUT SCH (10:22)
[2020-11-15] MEDS: CYANOCOBALAMIN 1000MCG/ML VIAL IM SCH (14:41)
[2020-11-16] VITALS: BP 141/70
[2020-11-16 04:00] VITALS: BP 160/75
[2020-11-16] MEDS: GABAPENTIN 100MG CAPSULE PO SCH ×2 (05:07→13:46)
[2020-11-16] MEDS: LOSARTAN POTASSIUM 25 MG TABLET PO SCH (08:27)
[2020-11-16] MEDS: AMLODIPINE 10MG TABLET PO SCH ×2 (08:27→16:34)
[2020-11-16] MEDS: ATORVASTATIN CALCIUM 20MG TABLET PO SCH (08:27)
[2020-11-16] MEDS: CEFEPIME 1,000 MG in DEXTROSE 5% WATER 50 ML IV SCH (08:27)
[2020-11-16] MEDS: FAMOTIDINE 20MG TABLET PO SCH (08:27)
[2020-11-16] MEDS: ENOXAPARIN 30MG/0.3ML SYR SUBCUT SCH (08:28)
[2020-11-16] MEDS: CYANOCOBALAMIN 1000MCG/ML VIAL IM SCH (08:28)
[2020-11-16] MEDS: LIDOCAINE HCL 4% CREAM 76GM TUBE TP SCH ×2 (08:32→16:34)
[2020-11-16] MEDS ORDERED: HYDROCODONE/ACETAMINOPHEN 5/325MG TABLET PO PRN (11:00)
[2020-11-16 12:00] VITALS: BP 130/64
[2020-11-16 16:00] VITALS: BP 135/69
[2020-11-16 18:18] VITALS: BP 135/69
== END 2020-11-16 18:50 | DRG 551 ==
LOC: ER 11:13 → EDBEDREQ 16:58 → EDBEDREQTM 16:58 → ENRESERV 20:51 → 8WST 11-13 00:12
PROVIDERS: ADMIT Internal Medicine; ATTEND Internal Medicine
DX: M48.061 Spinal stenosis, lumbar region without neurogenic claudication (principal); G82.50 Quadriplegia, unspecified; I48.92 Unspecified atrial flutter; N30.00 Acute cystitis without hematuria; M51.36 Other intervertebral disc degeneration, lumbar region; M48.02 Spinal stenosis, cervical region; M17.12 Unilateral primary osteoarthritis, left knee; M16.0 Bilateral primary osteoarthritis of hip; M19.072 Primary osteoarthritis, left ankle and foot; M75.00 Adhesive capsulitis of unspecified shoulder; M47.812 Spondylosis without myelopathy or radiculopathy, cervical region; J44.9 Chronic obstructive pulmonary disease, unspecified; I48.91 Unspecified atrial fibrillation; I11.9 Hypertensive heart disease without heart failure; G89.29 Other chronic pain; E78.5 Hyperlipidemia, unspecified; E78.00 Pure hypercholesterolemia, unspecified; E66.9 Obesity, unspecified; Z20.822 Contact with and (suspected) exposure to COVID-19; D50.9 Iron deficiency anemia, unspecified; K21.9 Gastro-esophageal reflux disease without esophagitis; Z88.8 Allergy status to other drugs, medicaments and biological substances; Z79.899 Other long term (current) drug therapy
CPT/HCPCS: 36415; 70544; 70553; 71045; 72141; 72148; 72192; 73522; 73560; 73700; 80048; 80053; 80305; 80320; 81003; 82550; 82553; 82607; 83540; 83550; 84439; 84443; 84484; 85025; 85044; 87426; 90686; 93005; 93306; 93880; 93970; 97110; 97162; 97166; 97535; 99285; C1893; J0692; J1650; J3420; J7040; J7060; G0480

== ENCOUNTER 2020-11-16 18:50 | Inpatient (IN) | payer MEDICARE, MEDICAID ==
[~2020-11-16] VITALS: Ht 154.9 cm; Wt 97.5 kg
[2020-11-16 19:00] VITALS: BP 127/67
[2020-11-16 20:00] VITALS: BP 125/62
[2020-11-16] MEDS ORDERED: HYDROCODONE/ACETAMINOPHEN 5/325MG TABLET PO PRN (21:00)
[2020-11-16] MEDS ORDERED: ACETAMINOPHEN 325MG TABLET PO PRN (21:00)
[2020-11-16] MEDS ORDERED: ONDANSETRON HCL 4MG/2ML INJ IV PRN (21:00)
[2020-11-16] MEDS ORDERED: CLONIDINE 0.1MG TABLET PO PRN (21:00)
[2020-11-16] MEDS: ATORVASTATIN CALCIUM 20MG TABLET PO SCH (21:50)
[2020-11-16] MEDS: GABAPENTIN 100MG CAPSULE PO SCH (21:50)
[2020-11-16] MEDS: CEFEPIME 1,000 MG in DEXTROSE 5% WATER 50 ML IV SCH (22:58)
[2020-11-17] MEDS: GABAPENTIN 100MG CAPSULE PO SCH ×3 (05:41→21:24)
[2020-11-17 07:56] VITALS: BP 127/70
[2020-11-17 08:29] LABS: BASOPHILS % 1.5 % (0.0-2.0); EOSINOPHILS % 6.5 % (0.0-5.0); HEMATOCRIT. 34.6 % (36.0-48.0); HEMOGLOBIN. 11.5 g/dL (12.0-16.0); LYMPHOCYTES % 20.5 % (20.0-50.0); MEAN CORPUSCULAR HEMOGLOBIN 26.4 pg (28.0-32.0); MEAN CORPUSCULAR VOLUME 79.1 fL (81.0-99.0); MEAN PLATELET VOLUME 11.3 fl (7.4-10.4); MONOCYTES % 11.5 % (2.0-8.0); PLATELET 184 x1000/uL (130-400); RED BLOOD CELL COUNT 4.38 mill/uL (4.2-5.4); RED CELL DISTRIBUTION WIDTH 15.8 % (11.6-14.6)
[2020-11-17 08:39] LABS: CHLORIDE 109 mEq/L (98-107)
[2020-11-17] MEDS ORDERED: CYANOCOBALAMIN 1000MCG/ML VIAL IM SCH ×2 (09:00→21:00)
[2020-11-17] MEDS: LOSARTAN POTASSIUM 25 MG TABLET PO SCH (09:11)
[2020-11-17] MEDS: LIDOCAINE HCL 4% CREAM 76GM TUBE TP SCH ×2 (09:12→16:57)
[2020-11-17] MEDS: AMLODIPINE 10MG TABLET PO SCH ×2 (09:12→21:00)
[2020-11-17] MEDS: CEFEPIME 1,000 MG in DEXTROSE 5% WATER 50 ML IV SCH ×2 (09:12→21:24)
[2020-11-17] MEDS: FAMOTIDINE 20MG TABLET PO SCH (09:12)
[2020-11-17] MEDS: ENOXAPARIN 30MG/0.3ML SYR SUBCUT SCH (09:13)
[2020-11-17 20:00] VITALS: BP 119/63
[2020-11-17] MEDS: ATORVASTATIN CALCIUM 20MG TABLET PO SCH (21:23)
[2020-11-18] MEDS: GABAPENTIN 100MG CAPSULE PO SCH ×3 (05:28→21:35)
[2020-11-18 07:12] LABS: BASOPHILS % 0.8 % (0.0-2.0); EOSINOPHILS % 6.7 % (0.0-5.0); HEMATOCRIT. 35.7 % (36.0-48.0); HEMOGLOBIN. 11.4 g/dL (12.0-16.0); LYMPHOCYTES % 20.6 % (20.0-50.0); MEAN CORPUSCULAR HEMOGLOBIN 25.3 pg (28.0-32.0); MEAN CORPUSCULAR VOLUME 79.4 fL (81.0-99.0); MEAN PLATELET VOLUME 10.7 fl (7.4-10.4); MONOCYTES % 9.5 % (2.0-8.0); NEUTROPHILS % 62.4 % (40.0-76.0); PLATELET 179 x1000/uL (130-400)
[2020-11-18 07:18] LABS: CHLORIDE 108 mEq/L (98-107)
[2020-11-18 08:00] VITALS: BP 140/63
[2020-11-18] MEDS ORDERED: LACTULOSE 20G/30ML UDC PO SCH (08:20)
[2020-11-18] MEDS: LOSARTAN POTASSIUM 25 MG TABLET PO SCH (09:31)
[2020-11-18] MEDS: LIDOCAINE HCL 4% CREAM 76GM TUBE TP SCH ×2 (09:31→17:15)
[2020-11-18] MEDS: FAMOTIDINE 20MG TABLET PO SCH (09:31)
[2020-11-18] MEDS: AMLODIPINE 10MG TABLET PO SCH ×2 (09:31→21:35)
[2020-11-18] MEDS: ENOXAPARIN 30MG/0.3ML SYR SUBCUT SCH (09:32)
[2020-11-18 20:00] VITALS: BP 139/61
[2020-11-18] MEDS: ATORVASTATIN CALCIUM 20MG TABLET PO SCH (21:35)
[2020-11-19] MEDS: GABAPENTIN 100MG CAPSULE PO SCH ×3 (05:37→21:45)
[2020-11-19 08:27] VITALS: BP 134/61
[2020-11-19] MEDS: FAMOTIDINE 20MG TABLET PO SCH (08:34)
[2020-11-19] MEDS: LOSARTAN POTASSIUM 25 MG TABLET PO SCH (08:34)
[2020-11-19] MEDS: AMLODIPINE 10MG TABLET PO SCH ×2 (08:34→21:00)
[2020-11-19] MEDS: ENOXAPARIN 30MG/0.3ML SYR SUBCUT SCH (08:34)
[2020-11-19] MEDS: LIDOCAINE HCL 4% CREAM 76GM TUBE TP SCH ×2 (08:41→18:58)
[2020-11-19 20:00] VITALS: BP 108/67
[2020-11-19] MEDS: ATORVASTATIN CALCIUM 20MG TABLET PO SCH (21:45)
[2020-11-20] MEDS: GABAPENTIN 100MG CAPSULE PO SCH ×3 (05:38→21:31)
[2020-11-20 07:58] VITALS: BP 149/66
[2020-11-20] MEDS: FAMOTIDINE 20MG TABLET PO SCH (08:49)
[2020-11-20] MEDS: LOSARTAN POTASSIUM 25 MG TABLET PO SCH (08:49)
[2020-11-20] MEDS: ENOXAPARIN 30MG/0.3ML SYR SUBCUT SCH (08:50)
[2020-11-20] MEDS: LIDOCAINE HCL 4% CREAM 76GM TUBE TP SCH ×2 (08:50→17:02)
[2020-11-20] MEDS: AMLODIPINE 10MG TABLET PO SCH ×2 (08:50→21:00)
[2020-11-20 20:00] VITALS: BP 104/46
[2020-11-20] MEDS: ATORVASTATIN CALCIUM 20MG TABLET PO SCH (21:31)
[2020-11-21] MEDS: GABAPENTIN 100MG CAPSULE PO SCH ×3 (05:19→21:22)
[2020-11-21 08:00] VITALS: BP 103/49
[2020-11-21] MEDS: ENOXAPARIN 30MG/0.3ML SYR SUBCUT SCH (08:42)
[2020-11-21] MEDS: AMLODIPINE 10MG TABLET PO SCH ×2 (08:43→21:22)
[2020-11-21] MEDS: LOSARTAN POTASSIUM 25 MG TABLET PO SCH (08:43)
[2020-11-21] MEDS: LIDOCAINE HCL 4% CREAM 76GM TUBE TP SCH ×2 (08:43→16:49)
[2020-11-21] MEDS: FAMOTIDINE 20MG TABLET PO SCH (08:43)
[2020-11-21 20:00] VITALS: BP 119/85
[2020-11-21] MEDS: ATORVASTATIN CALCIUM 20MG TABLET PO SCH (21:22)
[2020-11-22] MEDS: GABAPENTIN 100MG CAPSULE PO SCH ×3 (05:52→21:32)
[2020-11-22 07:08] LABS: 25-HYDROXY VITAMIN D3 33 ng/mL (.)
[2020-11-22 09:35] LABS: BASOPHILS % 1.2 % (0.0-2.0); EOSINOPHILS % 7.7 % (0.0-5.0); HEMATOCRIT. 37.2 % (36.0-48.0); HEMOGLOBIN. 11.9 g/dL (12.0-16.0); LYMPHOCYTES % 25.9 % (20.0-50.0); MEAN CORPUSCULAR HEMOGLOBIN 25.8 pg (28.0-32.0); MEAN PLATELET VOLUME 11.4 fl (7.4-10.4); MONOCYTES % 8.7 % (2.0-8.0); NEUTROPHILS % 56.5 % (40.0-76.0); PLATELET 224 x1000/uL (130-400); RED BLOOD CELL COUNT 4.59 mill/uL (4.2-5.4); RED CELL DISTRIBUTION WIDTH 15.5 % (11.6-14.6)
[2020-11-22] MEDS: LOSARTAN POTASSIUM 25 MG TABLET PO SCH (11:24)
[2020-11-22] MEDS: AMLODIPINE 10MG TABLET PO SCH ×2 (11:25→21:32)
[2020-11-22] MEDS: FAMOTIDINE 20MG TABLET PO SCH (11:26)
[2020-11-22] MEDS: ENOXAPARIN 30MG/0.3ML SYR SUBCUT SCH (11:32)
[2020-11-22] MEDS: LIDOCAINE HCL 4% CREAM 76GM TUBE TP SCH ×2 (15:26→17:33)
[2020-11-22] MEDS: ATORVASTATIN CALCIUM 20MG TABLET PO SCH (21:32)
[2020-11-22 21:36] VITALS: BP 98/49
[2020-11-23] MEDS: GABAPENTIN 100MG CAPSULE PO SCH ×3 (06:22→20:53)
[2020-11-23] MEDS: ENOXAPARIN 30MG/0.3ML SYR SUBCUT SCH (08:11)
[2020-11-23] MEDS: LOSARTAN POTASSIUM 25 MG TABLET PO SCH (08:11)
[2020-11-23] MEDS: FAMOTIDINE 20MG TABLET PO SCH (08:11)
[2020-11-23] MEDS: AMLODIPINE 10MG TABLET PO SCH (08:11)
[2020-11-23] MEDS: LIDOCAINE HCL 4% CREAM 76GM TUBE TP SCH ×2 (08:12→17:16)
[2020-11-23 08:30] VITALS: BP 120/59
[2020-11-23] MEDS: SODIUM CHLORIDE 0.9% 1,000 ML IV SCH (13:30)
[2020-11-23 20:00] VITALS: BP 124/58
[2020-11-23] MEDS: ATORVASTATIN CALCIUM 20MG TABLET PO SCH (20:53)
[2020-11-24] MEDS: GABAPENTIN 100MG CAPSULE PO SCH ×3 (06:20→21:00)
[2020-11-24 06:54] LABS: BASOPHILS % 1.4 % (0.0-2.0); EOSINOPHILS % 6.7 % (0.0-5.0); HEMATOCRIT. 34.9 % (36.0-48.0); HEMOGLOBIN. 11.4 g/dL (12.0-16.0); LYMPHOCYTES % 27.7 % (20.0-50.0); MEAN CORPUSCULAR HEMOGLOBIN 25.9 pg (28.0-32.0); MEAN CORPUSCULAR VOLUME 79.8 fL (81.0-99.0); MEAN PLATELET VOLUME 11.9 fl (7.4-10.4); MONOCYTES % 11.8 % (2.0-8.0); NEUTROPHILS % 52.4 % (40.0-76.0); PLATELET 199 x1000/uL (130-400); RED BLOOD CELL COUNT 4.38 mill/uL (4.2-5.4); RED CELL DISTRIBUTION WIDTH 15.3 % (11.6-14.6)
[2020-11-24 07:50] VITALS: BP 130/60
[2020-11-24] MEDS: FAMOTIDINE 20MG TABLET PO SCH (08:27)
[2020-11-24] MEDS: ENOXAPARIN 30MG/0.3ML SYR SUBCUT SCH (08:27)
[2020-11-24] MEDS: LIDOCAINE HCL 4% CREAM 76GM TUBE TP SCH ×2 (08:27→16:45)
[2020-11-24] MEDS: SODIUM CHLORIDE 0.9% 1,000 ML IV SCH (08:32)
[2020-11-24 14:22] LABS: CLARITY URINE CLEAR (CLEAR); COLOR URINE YELLOW (YELLOW); KETONES URINE NEGATIVE (NEGATIVE); LEUKOCYTE ESTERASE URINE 3+ (NEGATIVE); NITRITE URINE NEGATIVE (NEGATIVE); OCCULT BLOOD URINE NEGATIVE (NEGATIVE); PROTEIN URINE TRACE (NEGATIVE); SPECIFIC GRAVITY URINE 1.012 (1.005-1.030); UROBILINOGEN URINE 0.2 E.U./dL (0.2-1.0)
[2020-11-24 20:00] VITALS: BP 106/51
[2020-11-24] MEDS: ATORVASTATIN CALCIUM 20MG TABLET PO SCH (20:49)
[2020-11-25] MEDS: SODIUM CHLORIDE 0.9% 1,000 ML IV SCH (05:08)
[2020-11-25] MEDS: GABAPENTIN 100MG CAPSULE PO SCH ×3 (05:16→21:49)
[2020-11-25 07:56] VITALS: BP 109/64
[2020-11-25] MEDS: ENOXAPARIN 30MG/0.3ML SYR SUBCUT SCH (09:08)
[2020-11-25] MEDS: FAMOTIDINE 20MG TABLET PO SCH (09:08)
[2020-11-25] MEDS: LIDOCAINE HCL 4% CREAM 76GM TUBE TP SCH ×2 (09:08→18:23)
[2020-11-25] MEDS ORDERED: LEVOFLOXACIN 500MG TABLET PO SCH (11:00)
[2020-11-25] MEDS: DOCUSATE SODIUM 100MG CAPSULE PO SCH (18:23)
[2020-11-25 20:00] VITALS: BP 107/52
[2020-11-25] MEDS ORDERED: POLYETHYLENE GLYCOL 3350 (17GM) 1 DOSE PACK PO SCH (21:00)
[2020-11-25] MEDS: ATORVASTATIN CALCIUM 20MG TABLET PO SCH (21:49)
[2020-11-26] MEDS: SODIUM CHLORIDE 0.9% 1,000 ML IV SCH (00:58)
[2020-11-26] MEDS: GABAPENTIN 100MG CAPSULE PO SCH (06:22)
[2020-11-26 08:12] VITALS: BP 130/61
[2020-11-26] MEDS: DOCUSATE SODIUM 100MG CAPSULE PO SCH (08:31)
[2020-11-26] MEDS: FAMOTIDINE 20MG TABLET PO SCH (08:31)
[2020-11-26] MEDS: ENOXAPARIN 30MG/0.3ML SYR SUBCUT SCH (08:32)
[2020-11-26] MEDS: LIDOCAINE HCL 4% CREAM 76GM TUBE TP SCH (08:34)
[2020-11-26] MEDS ORDERED: LEVOFLOXACIN 250MG TABLET PO SCH (11:00)
[2020-11-26 12:41] VITALS: BP 121/75
== END 2020-11-26 13:45 | disposition home health service (06) | DRG 551 ==
LOC: 4WST 18:50 → UNDOADMIN 18:50
PROVIDERS: ADMIT Physical Medicine & Rehabilitation Spinal Cord Injury Medicine; ATTEND Internal Medicine
DX: M48.02 Spinal stenosis, cervical region (principal); G82.50 Quadriplegia, unspecified; N39.0 Urinary tract infection, site not specified; I48.92 Unspecified atrial flutter; E87.1 Hypo-osmolality and hyponatremia; N17.9 Acute kidney failure, unspecified; Z68.41 Body mass index [BMI] 40.0-44.9, adult; M48.061 Spinal stenosis, lumbar region without neurogenic claudication; M75.00 Adhesive capsulitis of unspecified shoulder; M19.072 Primary osteoarthritis, left ankle and foot; M17.12 Unilateral primary osteoarthritis, left knee; D50.9 Iron deficiency anemia, unspecified; E78.00 Pure hypercholesterolemia, unspecified; E78.5 Hyperlipidemia, unspecified; G89.29 Other chronic pain; I10 Essential (primary) hypertension; J44.9 Chronic obstructive pulmonary disease, unspecified; M16.0 Bilateral primary osteoarthritis of hip; E55.9 Vitamin D deficiency, unspecified; E66.9 Obesity, unspecified; F09 Unspecified mental disorder due to known physiological condition; F39 Unspecified mood [affective] disorder; M51.9 Unspecified thoracic, thoracolumbar and lumbosacral intervertebral disc disorder; R40.0 Somnolence; R42 Dizziness and giddiness; R53.81 Other malaise; R63.0 Anorexia; M19.90 Unspecified osteoarthritis, unspecified site; G90.8 Other disorders of autonomic nervous system; M47.812 Spondylosis without myelopathy or radiculopathy, cervical region; M54.9 Dorsalgia, unspecified; Z82.49 Family history of ischemic heart disease and other diseases of the circulatory system; Z79.01 Long term (current) use of anticoagulants
CPT/HCPCS: 36415; 76770; 80048; 80053; 81003; 82306; 84134; 85025; 93005; 93970; 97110; 97116; 97162; 97166; 97530; 97535; J0692; J1650; J3420; J7030; J7060

== ENCOUNTER 2022-08-31 10:49 | Emergency (ER) | payer MEDICARE, MEDICAID ==
[~2022-08-31] VITALS: Ht 167.6 cm; Wt 79.0 kg
[2022-08-31] MEDS ORDERED: SODIUM CHLORIDE 0.9% 1,000 ML IV ONE (14:00)
[2022-08-31 14:19] LABS: HEMATOCRIT. 36.4 % (36.0-48.0); MEAN CORPUSCULAR HEMOGLOBIN 27.1 pg (28.0-32.0); MEAN CORPUSCULAR VOLUME 81.8 fL (81.0-99.0); RED BLOOD CELL COUNT 4.45 mill/uL (4.2-5.4); RED CELL DISTRIBUTION WIDTH 17.3 % (11.6-14.6)
[2022-08-31 14:54] LABS: CHLORIDE 108 mEq/L (98-107)
[2022-08-31 14:55] LABS: PLATELET ESTIMATE NORMAL
[2022-08-31 14:56] LABS: PLATELET 177 x1000/uL (130-400)
[2022-08-31] MEDS ORDERED: MAGNESIUM 2 G PREMIX 50 ML IV NR (16:00)
[2022-08-31 16:51] LABS: CLARITY URINE CLEAR (CLEAR); COLOR URINE DARK YELLOW (YELLOW); KETONES URINE NEGATIVE (NEGATIVE); LEUKOCYTE ESTERASE URINE 3+ (NEGATIVE); NITRITE URINE NEGATIVE (NEGATIVE); OCCULT BLOOD URINE NEGATIVE (NEGATIVE); PROTEIN URINE 1+ (NEGATIVE)
[2022-08-31 18:06] LABS: *AMPHETAMINES SCREEN URINE NEGATIVE (NEGATIVE); *BARBITURATES SCREEN URINE NEGATIVE (NEGATIVE); *BENZODIAZEPINES SCREEN URINE NEGATIVE (NEGATIVE); *COCAINE SCREEN URINE NEGATIVE (NEGATIVE); CANNABINOID URINE SCREEN NEGATIVE (NEGATIVE); METHADONE URINE SCREEN NEGATIVE (NEGATIVE); OPIATES URINE SCREEN NEGATIVE (NEGATIVE); PHENCYCLIDINE URINE SCREEN NEGATIVE (NEGATIVE)
[2022-08-31 19:55] LABS: ETHANOL BLOOD < 10 mg/dL; T4 FREE 1.55 ng/dL (0.76-1.46); TOTAL IRON BINDING CAPACITY 253 ug/dL (250-450)
[2022-08-31 20:12] LABS: FOLIC ACID (FOLATE) SERUM 13.1 ng/mL (>5.38)
[2022-09-01] MEDS ORDERED: CEFTRIAXONE 1 G PREMIX 50 ML IV ONE (00:15)
[2022-09-01 03:00] VITALS: BP 174/106
== END 2022-09-01 06:54 | disposition home or self-care (01) ==
LOC: ER 10:49 → EDBEDREQ 16:42 → SUPCPDRO 17:38 → MICUSO 09-01 00:11 → UNDOADMIN 09-01 00:11 → EDBEDREQSVC 09-01 00:22 → EDBEDREQDT 09-01 00:22 → EDBEDREQTM 09-01 00:22 → EDBEDREQ 09-01 00:22 → UNDODISIN 09-01 06:51 → ER 09-01 06:54
DX: P59.9 Neonatal jaundice, unspecified (principal); Z88.9 Allergy status to unspecified drugs, medicaments and biological substances
CPT/HCPCS: 36415; 71045; 74181; 76700; 80053; 80305; 80320; 81003; 82607; 82746; 82962; 83540; 83550; 83735; 84145; 84439; 84443; 84484; 85025; 87086; 96365; 96366; 96367; 99285; J0696; J3475; J7030; G0480